=== PATIENT | male | born 1990 | race African-American/Black ===

== ENCOUNTER 2023-07-10 20:37 | Emergency (ER) | payer OTHER ==
[~2023-07-10] VITALS: Ht 188 cm; Wt 82.0 kg
[2023-07-10 21:08] VITALS: TEMP 98.4; O2SAT 98
[2023-07-11] MEDS ORDERED: IBUP-2030 MT (00:19)
[2023-07-11] MEDS ORDERED: IBUPROFEN 800MG TABLET PO ONE (00:30)
[2023-07-11] MEDS ORDERED: IBUPROFEN 400MG TABLET PO NR (01:15)
[2023-07-11 01:27] VITALS: BP 121/64; PULSE 60; RESP 18
== END 2023-07-11 01:20 | disposition home or self-care (01) ==
LOC: ER 20:37
DX: S93.401A Sprain of unspecified ligament of right ankle, initial encounter (principal); X58.XXXA Exposure to other specified factors, initial encounter; Y93.89 Activity, other specified; Y92.89 Other specified places as the place of occurrence of the external cause; Y99.8 Other external cause status
CPT/HCPCS: 73610; 73620; 99284